=== PATIENT | female | born 1980 ===

== ENCOUNTER 2021-03-03 13:07 | Outpatient (CLI) | payer SELFPAY ==
[~2021-03-03] VITALS: Ht 154.9 cm; Wt 105.9 kg
[2021-03-03 14:07] LABS: MICROSCOPIC INDICATED
== END 2021-03-03 23:59 | disposition home or self-care (01) ==
LOC: LDOP 13:07
PROVIDERS: ATTEND Obstetrics & Gynecology
DX: O09.93 Supervision of high risk pregnancy, unspecified, third trimester (principal); O26.893 Other specified pregnancy related conditions, third trimester; O24.419 Gestational diabetes mellitus in pregnancy, unspecified control; Z3A.34 34 weeks gestation of pregnancy
CPT/HCPCS: 59025; 81001; 87086; 87147